=== PATIENT | male | born 1970 | race Caucasian/White ===

== ENCOUNTER 2023-09-26 14:27 | Emergency (ER) | payer OTHER ==
[2023-09-26 14:39] VITALS: BP 156/102; PULSE 100; RESP 18; TEMP 97.8; BMI 31.6
[2023-09-26] MEDS ORDERED: DIPHTH,PERTUSS(ACELL),TET 0.5 ML DISP.SYRIN IM ONE ×2 (15:16→15:18)
== END 2023-09-26 15:24 | disposition home or self-care (01) ==
LOC: FER 14:27
PROC: 0HQ1XZZ Repair Face Skin, External Approach (ICD-10-PCS; principal; 2023-09-26)
PROC: 3E0234Z Introduction of Serum, Toxoid and Vaccine into Muscle, Percutaneous Approach (ICD-10-PCS; 2023-09-26)
DX: S01.511A Laceration without foreign body of lip, initial encounter (principal); W21.04XA Struck by golf ball, initial encounter; Y93.53 Activity, golf
CPT/HCPCS: 90715; 99283-25